=== PATIENT | male | born 1995 | race American Indian/Alaskan Native ===

== ENCOUNTER 2021-09-07 14:21 | Emergency (ER) | payer SELFPAY ==
--- NOTE | 2021-09-07 20:31 | Emergency Department Report ---
- General Chief Complaint: Wound/Laceration Stated Complaint: HAND CUT Time Seen by Provider: 09/07/21 20:04 Source: patient Mode of arrival: Ambulatory Limitations: No Limitations - History of Present Illness Initial Comments: 26-year-old black male with no past medical history presents to the emergency department for evaluation of left hand laceration. He states that he cut hand with a knife while he was cooking today. He states that Tdap is up-to-date. -: Sudden, days(s) Extremity Location: Left: Hand Place: home Patient Tetanus UTD: Yes Context: accidental Associated Symptoms: pain. denies: loss of feeling/numbness, suspect foreign body present, unable to move injured part, weakness followed by dizziness, nausea/vomiting, fever ED Review of Systems ROS: Stated complaint: HAND CUT Other details as noted in HPI Comment: All other systems reviewed and negative Constitutional: denies: fever Respiratory: denies: shortness of breath Cardiovascular: denies: chest pain Gastrointestinal: denies: abdominal pain, nausea, vomiting Musculoskeletal: denies: back pain ED Past Medical Hx - Surgical History Additional Surgical History: carpel tunnel release to left wrist - Social History Smoking Status: Never Smoker ED Physical Exam - General Limitations: No Limitations General appearance: alert, in no apparent distress - Head Head exam: Present: atraumatic, normocephalic - Eye Eye exam: Present: normal appearance. Absent: conjunctival injection - Neck Neck exam: Present: normal inspection - Respiratory Respiratory exam: Absent: respiratory distress - Cardiovascular Cardiovascular Exam: Present: regular rate - GI/Abdominal GI/Abdominal exam: Absent: distended - Expanded Upper Extremity Exam Left Upper Arm exam: Present: normal inspection Elbow exam: Present: normal inspection Forearm Wrist exam: Present: normal inspection Hand Wrist exam: Present: tenderness, swelling, laceration. Absent: normal inspection Hand L/R Back: 1 - Laceration Neuro motor exam: Present: wrist extension intact, thumb opposition intact, th umb IP flexion intact, thumb adduction intact, fingers 2-5 abduction intact Vascular: Present: normal capillary refill, radial pulse. Absent: vascular compromise, Pallo, pulse deficit radial art - Back Exam Back exam: Present: normal inspection - Neurological Exam Neurological exam: Present: alert, oriented X3 - Psychiatric Psychiatric exam: Present: normal affect, normal mood - Skin Skin exam: Present: warm, dry, intact, normal color ED Course Vital Signs 09/07/21 15:06 Temperature 98.9 F Pulse Rate 62 Respiratory 16 Rate Blood Pressure 113/69 O2 Sat by Pulse 98 Oximetry - Laceration /Wound Repair Left Posterior Hand Wound Location: upper extremity (Left hand) Wound Length (cm): 4 Wound's Depth, Shape: superficial, linear Wound Explored: clean Irrigated w/ Saline (ccs): 80 Betadine Prep?: No Anesthesia: 1% Lidocaine Volume Anesthetic (ccs): 5 Wound Repaired With: sutures Suture Size/Type: 4:0 (Vicryl) Number of Sutures: 5 Layer Closure?: No Sterile Dressing Applied?: Yes Progress: Patient tolerated well. No bleeding noted after repair. ED Medical Decision Making - Medical Decision Making 26-year-old black male with no past medical history presents to the emergency department for evaluation of right hand laceration. He states that he cut hand with a knife while he was cooking today. He states that Tdap is up-to-date. Left hand laceration repaired per my procedure note. Patient tolerated well. Patient medicated for pain with one-time dose of Toradol and hydrocodone. He is advised to leave sutures in place until they resolve, monitor for signs of infection, return to the emergency department for any signs of infection noted, use ibuprofen and Tylenol as needed for pain. He is advised to follow-up with his primary care provider as needed. He verbalizes understanding of and agree ment with plan of care. Critical care attestation.: If time is entered above; I have spent that time in minutes in the direct care of this critically ill patient, excluding procedure time. ED Disposition Clinical Impression: Laceration of right hand Qualifiers: Encounter type: initial encounter Foreign body presence: without foreign body Qualified Code(s): S61.411A - Laceration without foreign body of right hand, initial encounter Disposition: HOME / SELF CARE / HOMELESS Is pt being admited?: No Does the pt Need Aspirin: No Condition: Stable Instructions: Laceration Care, Adult, [id number], Sutured Wound Care, Easy-t o-Read Additional Instructions: Monitor for signs of infection and return to the emergency department immediately if any noted. Follow-up with primary care provider as needed. Forms: Work/School Release Form(ED) Time of Disposition: 20:31
[2021-09-07 20:49] VITALS: BP 124/77
[2021-09-07] MEDS ORDERED: HYDROcodone/ACETAMINOPHEN 5-325 MG TAB PO ONE (21:00)
[2021-09-07] MEDS ORDERED: KETOROLAC 10 MG TAB PO ONE (21:00)
== END 2021-09-07 21:05 | disposition home or self-care (01) ==
LOC: ED 14:21
DX: S61.411A Laceration without foreign body of right hand, initial encounter (principal); W26.0XXA Contact with knife, initial encounter; Y93.89 Activity, other specified; Y92.89 Other specified places as the place of occurrence of the external cause; Y99.8 Other external cause status
CPT/HCPCS: 99282